=== PATIENT | male | born 1985 | race Caucasian/White ===

== ENCOUNTER 2021-12-01 18:21 | Emergency (ER) | payer SELFPAY ==
[2021-12-01] MEDS ORDERED: NORCO 5-325 TA1 EACH PO (19:23)
[2021-12-01] MEDS ORDERED: KEFLEX250 MG PO (19:23)
== END 2021-12-01 19:40 | disposition home or self-care (01) ==
LOC: FER 18:21
DX: T23.141A Burn of first degree of multiple right fingers (nail), including thumb, initial encounter (principal); T31.0 Burns involving less than 10% of body surface; F17.210 Nicotine dependence, cigarettes, uncomplicated; Z23 Encounter for immunization; X10.2XXA Contact with fats and cooking oils, initial encounter; Y93.G3 Activity, cooking and baking; Y92.009 Unspecified place in unspecified non-institutional (private) residence as the place of occurrence of the external cause
CPT/HCPCS: 90471; 90715; 99283